=== PATIENT | female | born 1990 | race Caucasian/White ===

== ENCOUNTER 2016-11-18 19:36 | Emergency (ER) | payer MEDICAID, OTHER, SELFPAY ==
[2016-11-18 19:37] VITALS: BMI 20.9
[2016-11-18 20:41] VITALS: TEMP 98.1
[2016-11-18 21:21] LABS: ADD MANUAL DIFF? NO
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
[2016-11-18 21:27] LABS: BASO # 0.03 K/mm3 (0.0-2.0); BASO % 0.3 % (0.0-3.0); EOS # 0.1 (0.0-0.7); EOS % 0.5 % (1.5-5.0); GRAN # 5.08 (1.4-6.5); GRAN % 52.6 % (50.0-68.0); HEMATOCRIT 42.1 % (36.0-48.0); LYMPH % 40.9 % (22.0-35.0); MEAN CELL VOLUME 77.7 fL (80.0-105.0); MEAN CORPUSCULAR HGB CONC 33.5 g/dl (31.0-37.0); MEAN PLATELET VOLUME 10.1 fl (7.0-11.0); MONO # 0.6 (0.1-0.6); MONO % 5.7 % (1.0-6.0); PLATELET COUNT 310 10^3/uL (120.0-450.0); RED CELL DISTRIBUTION WIDTH 13.4 % (11.5-14.5); URINE BILIRUBIN NEGATIVE (NEGATIVE); URINE BLOOD NEGATIVE (NEGATIVE); URINE GLUCOSE (UA) NEGATIVE (NEGATIVE); URINE KETONE NEGATIVE (NEGATIVE); URINE LEUKOCYTE ESTERASE NEGATIVE Leu/uL (NEGATIVE); URINE PROTEIN NEGATIVE mg/dL (<30 mg/dL); URINE UROBILINOGEN 0.2 E.U./dL (<1 E.U./dL); WHITE BLOOD COUNT 9.7 10^3/ul (4.5-11.0)
[2016-11-18 21:28] LABS: URINE APPEARANCE CLEAR (CLEAR); URINE COLOR YELLOW (YELLOW)
[2016-11-18 21:29] LABS: URINE BACTERIA SMALL (NEG)
[2016-11-18 21:34] LABS: ALKALINE PHOSPHATASE 99 U/L (38-133); ALT/SGPT 35 U/L (7-56); AST/SGOT 42 U/L (15-39); BILIRUBIN,TOTAL 0.5 mg/dL (0.2-1.3); BLOOD UREA NITROGEN 10 mg/dL (7-21); CALCIUM 9.7 mg/dL (8.4-10.5); CARBON DIOXIDE 28 mmol/L (21-33); CHLORIDE 99 mmol/L (98-107); GFR AFRICAN-AMERICAN > 60; GLUCOSE,RANDOM 84 mg/dL (70-110); MAGNESIUM 1.9 mg/dL (1.7-2.2); POTASSIUM 4.1 mmol/L (3.6-5.0); SODIUM 138 mmol/L (132-148)
[2016-11-18 21:47] LABS: TROPONIN I < 0.01 ng/mL
[2016-11-18 21:50] LABS: T4 5.8 ug/dL (5.5-11.0)
[2016-11-18 22:04] LABS: THYROID STIMULATING HORMONE 2.59 mIU/mL (0.46-4.68)
[2016-11-18 22:24] LABS: INR 0.99 (0.93-1.08)
--- NOTE | 2016-11-18 23:41 | CT ---
EXAM: CT Head Without Intravenous Contrast CLINICAL HISTORY: 25 years old, female; Pain; Headache; Migraine; Additional info: New onset headache. Pt refused to remove earrings TECHNIQUE: Axial computed tomography images of the head/brain without intravenous contrast. This CT exam was performed using one or more of the following dose reduction techniques: automated exposure control, adjustment of the mA and/or kV according to patient size, and/or use of iterative reconstruction technique. COMPARISON: No relevant prior studies available. FINDINGS: Brain: No intracranial hemorrhage. No mass. No definite edema. Ventricles: No hydrocephalus. Bones/joints: No acute fracture. Soft tissues: Unremarkable. Sinuses: Minimal mucosal thickening of maxillary sinuses. Mastoid air cells: No mastoid effusion. Orbits: Unremarkable as visualized. IMPRESSION: 1. No acute intracranial abnormality. 2. Incidental/non-acute findings are described above.
--- NOTE | 2016-11-19 02:31 | ED PDOC ---
Physical Exam Vital Signs Reviewed: Yes Vital Signs Temp Pulse Resp BP Pulse Ox 11/19/16 03:00 80 16 118/68 99 11/18/16 20:36 98.1 F 84 14 120/63 98 11/18/16 19:55 97.7 F 93 H 17 115/66 100 Temperature: Afebrile Blood Pressure: Normal Pulse: Regular Respiratory Rate: Normal Appearance: Positive for: Well-Appearing, Non-Toxic, Comfortable Pain Distress: None Mental Status: Positive for: Alert and Oriented X 3 - Systems Exam Head: Present: Atraumatic, Normocephalic Pupils: Present: PERRL Extroacular Muscles: Present: EOMI Conjunctiva: Present: Normal Mouth: Present: Moist Mucous Membranes Neck: Present: Normal Range of Motion Respiratory/Chest: Present: Clear to Auscultation, Good Air Exchange. No: Respiratory Distress, Accessory Muscle Use, Wheezes, Rales, Rhonchi Cardiovascular: Present: Regular Rate and Rhythm, Normal S1, S2. No: Murmurs, Rub, Gallop Abdomen: Present: Normal Bowel Sounds. No: Tenderness, Distention, Peritoneal Signs, Rebound, Guarding Back: Present: Normal Inspection Upper Extremity: Present: Normal Inspection. No: Cyanosis, Edema Lower Extremity: Present: Normal Inspection. No: Edema Neurological: Present: GCS=15, CN II-XII Intact, Speech Normal Skin: Present: Warm, Dry, Normal Color. No: Rashes Psychiatric: Present: Alert, Oriented x 3, Normal Insight, Normal Concentration Medical Decision Making ED Course and Treatment: 11/19/16 02:30 11/18/16 23:13 Case signed out to me by Dr. Dumont awaiting CT Head prior to PES evaluation. 11/19/16 01:14 EXAM: CT Head Without Intravenous Contrast FINDINGS: Brain: No intracranial hemorrhage. No mass. No definite edema. Ventricles: No hydrocephalus. Bones/joints: No acute fracture. Soft tissues: Unremarkable. Sinuses: Minimal mucosal thickening of maxillary sinuses. Mastoid air cells: No mastoid effusion. Orbits: Unremarkable as visualized. IMPRESSION: 1. No acute intracranial abnormality. 2. Incidental/non-acute findings are described above. 11/19/16 03:20 Patient seen by PES (Marcy) who spoke to Dr. Najera. Patient cleared for discharge as by psych with follow up at [facility] wither her doctor, Dr. Luis Felipe Oliveira, as instructed by HUMAIRA. - Lab Interpretations Lab Results: 11/18/16 20:20 11/18/16 20:20 Lab Results 11/18/16 23:24: Urine Opiates Screen Negative, Urine Methadone Screen Negative, Ur Barbiturates Screen Negative, Ur Phencyclidine Scrn Negative, Ur Amphetamines Screen Negative, U Benzodiazepines Scrn Negative, U Oth Cocaine Metabols Negative, U Cannabinoids Screen Negative 11/18/16 21:19: PT 10.7, INR 0.99 11/18/16 20:20: WBC 9.7, RBC 5.42, Hgb 14.1, Hct 42.1, MCV 77.7 L, MCH 26.0, MCHC 33.5, RDW 13.4, Plt Count 310, MPV 10.1, Gran % 52.6, Lymph % (Auto) 40.9 H , [place] % (Auto) 5.7, Eos % (Auto) 0.5 L, Baso % (Auto) 0.3, Gran # 5.08, Lymph # 4.0 H, [place] # 0.6, Eos # 0.1, Baso # 0.03, APTT 31.1 H, Sodium 138, Potassium 4.1, Chloride 99, Carbon Dioxide 28, Anion Gap 15, BUN 10, Creatinine 0.7, Est GFR ( Amer) > 60, Est GFR (Non-Af Amer) > 60, Random Glucose 84, Calcium 9.7, Magnesium 1.9, Total Bilirubin 0.5, AST 42 H, ALT 35, Alkaline Phosphatase 99, Lactate Dehydrogenase 546, Total Creatine Kinase 79, Troponin I < 0.01, Total Protein 9.0 H, Albumin 4.5, Globulin 4.5, Albumin/Globulin Ratio 1.0 L, Thyroxine (T4) 5.8, TSH 3rd Generation 2.59, Urine Color Yellow, Urine Appearance Clear, Urine pH 6.0, Ur Specific [place] >= 1.030, Urine Protein Negative, Urine Glucose (UA) Negative, Urine Ketones Negative, Urine Blood Negative, Urine Nitrate Positive H, Urine Bilirubin Negative, Urine Urobilinogen 0.2, Ur Leukocyte Esterase Negative, Urine RBC TEST NOT PERFORMED, Urine WBC 5 - 10, Ur Epithelial Cells 6 - 8, Urine Bacteria Small, Urine HCG, Qual Negative, Salicylates < 1 L, Acetaminophen < 10.0 L, Alcohol, Quantitative < 10 - RAD Interpretation Radiology Orders: 11/18/16 21:01 CHEST PORTABLE [RAD] Stat 11/18/16 22:02 HEAD W/O CONTRAST [CT] Stat - Medication Orders Current Medication Orders: Discontinued Medications Ondansetron HCl (Zofran Inj) 4 mg IVP ONCE ONE Stop: 11/18/16 22:03 Last Admin: 11/18/16 22:13 Dose: 4 MG IVP Administration Document 11/18/16 22:13 RD (Rec: 11/18/16 22:13 RD [id number]) Charges for Administration # of IVP Administrations 1 - Scribe Statement The provider has reviewed the documentation as recorded by the Arunibbeto Rodriguez Provider Scribe Attestation: All medical record entries made by the Scribe were at my direction and personally dictated by me. I have reviewed the chart and agree that the record accurately reflects my personal performance of the history, physical exam, medical decision making, and the department course for this patient. I have also personally directed, reviewed, and agree with the discharge instructions and disposition. Disposition/Present on Arrival - Present on Arrival Any Indicators Present on Arrival: No History of DVT/PE: No History of Uncontrolled Diabetes: No Urinary Catheter: No History of Decub. Ulcer: No History Surgical Site Infection Following: None - Disposition Have Diagnosis and Disposition been Completed?: Yes Diagnosis: Loss of appetite, Headache, Depression, Bipolar disorder Disposition: HOME/ ROUTINE Disposition Time: :17 Patient Plan: Discharge Condition: GOOD Additional Instructions: Follow up [facility] as directed Referrals: Quincy Sultana MD [Primary Care Provider] - Follow up with primary
[2016-11-19 03:18] VITALS: BP 118/68; PULSE 80; RESP 16; O2SAT 99
--- NOTE | 2016-11-19 12:47 | CARD ---
APPROVED REPORT EKG Measurement Heart [id number] <Conclusion> Normal sinus rhythm Normal ECG
--- NOTE | 2016-11-19 13:25 | RAD ---
PROCEDURE: CHEST RADIOGRAPH, 1 VIEW HISTORY: weakness COMPARISON: None available. FINDINGS: LUNGS: Clear. PLEURA: No pneumothorax or pleural fluid seen. CARDIOVASCULAR: Normal. OSSEOUS STRUCTURES: No significant abnormalities. VISUALIZED UPPER ABDOMEN: Normal. OTHER FINDINGS: None. IMPRESSION: No active disease.
== END 2016-11-19 03:21 | disposition home or self-care (01) ==
LOC: ED 19:36
DX: R63.0 Anorexia (principal); R51 Headache; F31.9 Bipolar disorder, unspecified; F32.9 Major depressive disorder, single episode, unspecified
CPT/HCPCS: 70450; 71010; 80053; 80320; 80324; 80329; 80345; 80346; 80349; 80353; 80358; 80361; 81001; 82550; 83615; 83735; 83992; 84436; 84443; 84484; 84703; 85025; 85610; 85730; 93005; 96374; 99283; J2405

== ENCOUNTER 2017-04-11 11:25 | Emergency (ER) | payer MEDICAID, OTHER ==
[2017-04-11 11:58] VITALS: BMI 23.7
[2017-04-11 12:02] VITALS: TEMP 98.5; O2SAT 98
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
[2017-04-11] MEDS ORDERED: Oxycodone/Acetaminophen 5/325 mg Tab PO STA (12:54)
[2017-04-11 13:25] VITALS: BP 108/57; PULSE 75; RESP 16
== END 2017-04-11 13:30 | disposition home or self-care (01) ==
LOC: ED 11:25
DX: K08.89 Other specified disorders of teeth and supporting structures (principal)

== ENCOUNTER 2017-04-28 12:46 | Emergency (ER) | payer MEDICAID, OTHER ==
[2017-04-28 13:01] VITALS: BMI 28.7
[2017-04-28 13:07] VITALS: TEMP 98.8
[2017-04-28] MEDS ORDERED: Sodium Chloride 0.9% 1,000 ML IV STA ×2 (13:33→15:30)
[2017-04-28 13:52] VITALS: RESP 18
[2017-04-28 13:53] LABS: BASO # 0.04 K/mm3 (0.0-2.0); BASO % 0.5 % (0.0-3.0); EOS # 0.1 (0.0-0.7); EOS % 0.8 % (1.5-5.0); GRAN # 3.53 (1.4-6.5); GRAN % 45.8 % (50.0-68.0); HEMATOCRIT 40.7 % (36.0-48.0); LYMPH # 3.4 (1.2-3.4); LYMPH % 43.9 % (22.0-35.0); MEAN CELL VOLUME 79.8 fl (80.0-105.0); MEAN CORPUSCULAR HEMOGLOBIN 26.1 pg (25.0-35.0); MEAN CORPUSCULAR HGB CONC 32.7 g/dl (31.0-37.0); MEAN PLATELET VOLUME 10.2 fl (7.0-11.0); MONO # 0.7 (0.1-0.6); WHITE BLOOD COUNT 7.7 10^3/ul (4.5-11.0)
--- NOTE | 2017-04-28 14:38 | CT ---
PROCEDURE: CT HEAD WITHOUT CONTRAST. HISTORY: r/o ICH COMPARISON: 11/18/2016 TECHNIQUE: Axial computed tomography images were obtained through the head/brain without intravenous contrast. Radiation dose: Total exam DLP = 690 mGy-cm. This CT exam was performed using one or more of the following dose reduction techniques: Automated exposure control, adjustment of the mA and/or kV according to patient size, and/or use of iterative reconstruction technique. FINDINGS: HEMORRHAGE: No intracranial hemorrhage. BRAIN: No mass effect or edema. No atrophy or chronic microvascular ischemic changes. VENTRICLES: Unremarkable. No hydrocephalus. CALVARIUM: Unremarkable. PARANASAL SINUSES: Unremarkable as visualized. No significant inflammatory changes. MASTOID AIR CELLS: Unremarkable as visualized. No inflammatory changes. OTHER FINDINGS: None. IMPRESSION: No acute findings
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
[2017-04-28 15:15] LABS: ALB/GLOB RATIO 1.3 (1.1-1.8); ALKALINE PHOSPHATASE 78 U/L (38-126); ALT/SGPT 54 U/L (7-56); AST/SGOT 31 U/L (14-36); BILIRUBIN,TOTAL 0.2 mg/dL (0.2-1.3); BLOOD UREA NITROGEN 11 mg/dL (7-21); CALCIUM 8.8 mg/dL (8.4-10.5); CARBON DIOXIDE 30 mmol/L (21-33); CHLORIDE 106 mmol/L (98-107); GFR AFRICAN-AMERICAN > 60; GLUCOSE,RANDOM 85 mg/dL (70-110); POTASSIUM 4.3 mmol/L (3.6-5.0); SODIUM 141 mmol/L (132-148); TOTAL PROTEIN 6.9 g/dL (5.8-8.3)
[2017-04-28 16:20] VITALS: BP 105/69; PULSE 71
[2017-04-28 16:28] VITALS: O2SAT 99
== END 2017-04-28 16:28 | disposition home or self-care (01) ==
LOC: ED 12:46
DX: G43.909 Migraine, unspecified, not intractable, without status migrainosus (principal)
CPT/HCPCS: 70450; 80053; 82948; 85025; 96361; 96374; 99285; J2765; J7040

== ENCOUNTER 2018-02-18 01:47 | Emergency (ER) | payer MEDICAID, OTHER ==
[2018-02-18 01:48] VITALS: BMI 28.7
[2018-02-18 02:02] VITALS: RESP 18; TEMP 98.2
[2018-02-18 02:28] LABS: HEMOGLOBIN 11.9 g/dL (12.0-16.0); MEAN CELL VOLUME 78.7 fl (80.0-105.0); MEAN CORPUSCULAR HEMOGLOBIN 25.9 pg (25.0-35.0); MEAN CORPUSCULAR HGB CONC 32.9 g/dl (31.0-37.0); RBC 4.6 10^6/uL (3.5-6.1); RED CELL DISTRIBUTION WIDTH 13.5 % (11.5-14.5); WHITE BLOOD COUNT 13.5 10^3/ul (4.5-11.0)
[2018-02-18 02:43] LABS: ALB/GLOB RATIO 1.2 (1.1-1.8); ALBUMIN 4.2 g/dL (3.0-4.8); ALT/SGPT 42 U/L (7-56); AST/SGOT 33 U/L (14-36); BLOOD UREA NITROGEN 13 mg/dL (7-21); CALCIUM 9.4 mg/dL (8.4-10.5); GFR AFRICAN-AMERICAN > 60; GFR NON-AFRICAN AMERICAN > 60
[2018-02-18 02:44] LABS: ACETAMINOPHEN < 10.0 ug/ml (10.0-20.0); SALICYLATE < 1 mg/dL (2.0-20.0)
[2018-02-18 02:51] LABS: TROPONIN I < 0.01 ng/mL
[2018-02-18 02:58] LABS: INR 0.95 (0.93-1.08); PARTIAL THROMBOPLASTIN TIME 28.9 Seconds (25.1-36.5); PROTHROMBIN TIME 10.8 SECONDS (9.4-12.5)
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
[2018-02-18 03:24] VITALS: BP 110/52; PULSE 79; O2SAT 100
--- NOTE | 2018-02-18 17:03 | CARD ---
APPROVED REPORT EKG Measurement Heart [id number] <Conclusion> Normal sinus rhythm Normal ECG
== END 2018-02-18 03:23 | disposition left against medical advice (07) ==
LOC: ED 01:47
DX: R56.9 Unspecified convulsions (principal); F41.9 Anxiety disorder, unspecified; F31.9 Bipolar disorder, unspecified